=== PATIENT | female | born 1955 | race Two or more races ===

== ENCOUNTER 2017-03-03 17:53 | Emergency (ER) | payer MEDICAID ==
[~2017-03-03 17:53] MED LIST: ALBUTEROL17 GM INH; AMARYL4 MG PO; ANTIVERT12.5 MG PO; ANTIVERT25 MG PO; ARTHRITIS MED; ASPIR 8181 M1 PO; AUGMENTIN 500-1 EAC2 PO; AURALGAN EAR DR15 ML OT; BENZONATATE200 M1 PO; CHOLESTEROL MED; COREG6.25 M1 PO; DAILY VITE1 EACH PO; DELTASONE50 MG PO; DICLOFENAC; DICLOFENAC SOD100 GM TP; FEMARA2.5 MG PO; FLAGYL500 M1 PO; FLEXERIL 10MG PO; FLEXERIL10 MG PO; FLEXERIL5 MG PO; GLIMEPIRIDE1 MG PO; HORMONE THERAPY PO; IBUPROFEN400 MG PO; LANTUS100 U/ML SC; LANTUS100 UNITS/ PO; LANTUS100 UNITS/ SC; LIPITOR80 M1 PO; LISINOPRIL-HCT1 EAC3 PO; MACROBID 100 M100 M1 PO; METFORMIN; MOTRIN400 MG PO; MOTRIN600 MG PO; NITROSTAT0.4 MG/TAB SL; NO MEDS; NORCO 5/325 TAB1 TAB PO; NORCO 5/3251 TA1 PO; NOVOLOG100 U/M SC; NOVOLOG100 U/M SQ; NOVOLOG100 UNIT/2 SQ; NOVOLOG100 UNITS/ SC; PATADAY2.5 ML EACH EYE; PEN-VEE K500 MG PO; PERCOCET 5-3251 EACH PO; PHENERGAN25 MG PO; PLAVIX75 M1 PO; PREDNISONE10 M1 PO; PROAIR HFA8.5 GM IH; SEPTRA 80/400 T1 TAB PO; TRAMADOL; TRAMADOL HCL50 M2 PO; ULTRAM50 M1 PO; XARELTO20 MG PO; ZARELTO PO; ZESTRIL10 M3 PO; ZITHROMAX250 M1 PO; ZITHROMAX250 MG PO; ZOFRAN ODT4 MG/UDTAB PO; [UNRECOGNIZED DRUG - OTHER] PO
[2017-03-03] MEDS ORDERED: FEMARA2.5 M1 PO (18:30)
[2017-03-03 19:03] LABS: BASO % 0.1 % (0-2); EOS % 4.4 % (0-7); EOSINOPHIL ABSOLUTE COUNT 0.4 tho/cmm (0.0-0.7); HCT-HEMATOCRIT 42.1 % (34.0-49.0); HGB-HEMOGLOBIN 14.1 gm/dl (12.0-15.5); IMMATURE GRANULOCYTES ABSOLUTE 0.01 tho/cmm (0-0.03); IMMATURE GRANULOCYTES PERCENT 0.1 % (0-0.3); LYMPH % 20.5 % (20-45); LYMPH ABSOLUTE COUNT 1.9 tho/cmm (0.8-4.5); MCH (MEAN CORPUSCULAR HGB) 30.3 pg (28.0-32.0); MCHC MEAN CORPUSCULAR HGB CONC 33.5 % (32.0-36.0); MCV (MEAN CELL VOLUME) 90.5 fl (82.0-96.0); MONO % 6.8 % (0-12); MONOCYTE ABSOLUTE COUNT 0.6 tho/cmm (0.0-1.2); NEUTROPHIL ABSOLUTE COUNT 6.2 tho/cmm (1.6-8.0); NEUTROPHIL-AUTOMATED 6.2 tho/cmm (1.6-8.0); NEUTROPHILS % 68.1 % (40-80); PLATELET COUNT 278 tho/cmm (150-450); RED BLOOD COUNT 4.65 mil/cmm (4.00-5.20); RED CELL DISTRIBUTION WIDTH 13.2 % (12.4-16.4); WHITE BLOOD COUNT 9.1 tho/cmm (4.0-10.0)
[2017-03-03 19:15] LABS: ALB/GLOB RATIO 0.7 (0.8-2.0); ALBUMIN 3.5 g/dl (3.5-5.0); ALKALINE PHOSPHATASE 173 U/L (33-138); ALT/SGPT 39 U/L (12-78); ANION GAP 17 mmol/L (0-20); AST/SGOT 19 U/L (10-40); BILIRUBIN,TOTAL 0.3 mg/dl (0-1.5); BLOOD UREA NITROGEN 20 mg/dl (6-24); CALCIUM 9.3 mg/dl (8.5-10.5); CARBON DIOXIDE-VENOUS 28 mmol/L (22-32); CHLORIDE 105 mmol/l (96-110); CREATININE 0.95 mg/dl (0.50-1.10); GLUCOSE 199 mg/dL (70-110); POTASSIUM 4.7 mmol/L (3.7-5.1); SODIUM 145 mmol/L (135-145); eGFR VALUE FOR BLACK 75 mL/Min
== END 2017-03-03 20:30 ==
LOC: EDMED 17:53
PROVIDERS: Physician Assistant
DX: R05 Cough (principal); I25.10 Atherosclerotic heart disease of native coronary artery without angina pectoris; E11.9 Type 2 diabetes mellitus without complications; I10 Essential (primary) hypertension; Z86.718 Personal history of other venous thrombosis and embolism; Z85.3 Personal history of malignant neoplasm of breast; Z88.6 Allergy status to analgesic agent; Z79.4 Long term (current) use of insulin; Z79.82 Long term (current) use of aspirin; Z79.899 Other long term (current) drug therapy
CPT/HCPCS: Q9967